=== PATIENT | male | born 1990 | race African-American/Black ===

== ENCOUNTER 2019-05-10 17:16 | Emergency (ER) | payer MEDICAID ==
[~2019-05-10] VITALS: Ht 185.4 cm; Wt 173.0 kg
[2019-05-10] MEDS ORDERED: LIDOcaine 5% patch TP STA (18:19)
[2019-05-10] MEDS ORDERED: ketorolac tromethamine 15mg/ml inj. IM ONE (18:20)
[2019-05-10] MEDS ORDERED: cyclobenzaprine 10mg tablet PO ONE (18:20)
[2019-05-10 18:40] VITALS: BP 146/86
== END 2019-05-10 18:43 | disposition home or self-care (01) ==
LOC: ER 17:16
DX: S33.5XXA Sprain of ligaments of lumbar spine, initial encounter (principal); X58.XXXA Exposure to other specified factors, initial encounter; Y93.89 Activity, other specified; Y92.89 Other specified places as the place of occurrence of the external cause; Y99.8 Other external cause status
CPT/HCPCS: 96372; 99283; J1885